=== PATIENT | female | born 1965 | race Two or more races ===

== ENCOUNTER 2025-03-06 13:36 | Emergency (ER) | payer MEDICAID, OTHER ==
[~2025-03-06] VITALS: Ht 160 cm; Wt 69.0 kg
[2025-03-06 13:43] VITALS: TEMP 98.4
[2025-03-06 14:37] VITALS: BP 133/83
[2025-03-06 14:43] VITALS: PULSE 85; RESP 18; O2SAT 95
[2025-03-06] MEDS ORDERED: INSLANTI SC (14:45)
[2025-03-06] MEDS ORDERED: INSUINJ7 IJ (14:45)
--- NOTE | 2025-03-06 14:45 | ED.PDOC ---
History of present illness HPI Comments 59-YEAR-OLD FEMALE PRESENTS TO THE ER WITH A CHIEF COMPLAINT BEING TYPE 2 DIABETES AND NEEDS MEDICATION REFILL FOR HER INSULIN AT THIS TIME. THE PATIENT REPORTS ON USING 2 TIMES OF INSULIN: ONE AT A DOSE OF 14 UNITS 3 TIMES A DAY AND ANOTHER AT A DOSE OF 20 UNITS ONCE A DAY. THE PATIENT HAS RAN OUT OF HER I NSULIN SUPPLY AFTER TRAVELING FROM [place] AND I HAVE ONLY BEEN ABLE TO ADMINISTER ONE DOSE TODAY. THERE HAS BEEN IN THE AREA FOR A FEW DAYS AND DO NOT HAVE A PRIMARY CARE DOCTOR LOCALLY AT THIS TIME. DENIES ANY OTHER SYMPTOMS AT THIS TIME. Chief Complaint: Diabetes Time Seen by MD: 14:50 Allergies: Coded Allergies: NO KNOWN ALLERGIES (Unverified , 03/06/25) Home Meds Active Scripts Insulin Glulisine (Apidra) 100 Unit/Ml Inj, 14 UNIT IJ TID for 30 Days, #1 KIT 0 Refills Prov:MARIO SOOD NP 03/06/25 Insulin Glargine (Lantus) 100 Unit/Ml Inj, 20 UNIT SC DAILY for 30 Days, #1 KIT 0 Refills Prov:MARIO SOOD NP 03/06/25 Mode of Arrival: Ambulatory Timing: Came on: Suddenly Duration: Since onset Prehospital treatment: None [place]: None History of: None Associated signs and symptoms: None Past Medical History PAST MEDICAL HISTORY: DM Surgical History: Denies all surgeries PRESS SET UP PERSON History: No Pertinent PRESS SET UP PERSON History Family History Family History: Reviewed,noncontributory to illness, Unknown Social History Smoker: Non-Smoker Alcohol: Denies ETOH Use Drugs: Denies Drug Use Lives In: Home All Other Systems: Reviewed and Negative (MEDICATION REFILL) Physical Exam General Appearance: No Apparent Distress, Normal HEENT: Normal ENT Inspection, Pharynx Normal, TMs Normal Neck: Full Range of Motion, Non-Tender, Normal, Normal Inspection Respiratory: Chest Non-Tender, Lungs Clear, No Accessory Muscle Use, No Respiratory Distress, Normal Breath Sounds Cardiovascular: No Edema, No JVD, No Murmur, No Gallop, Normal Peripheral Pulses, Regular Rate/Rhythm Breast Exam: Deferred Gastrointestinal: No Organomegaly, Non Tender, No Pulsatile Mass, Normal Bowel Sounds, Soft Genitalia: Deferred Pelvic: Deferred Rectal: Deferred Extremities: No calf tenderness, Normal capillary refill, Normal inspection, Normal range of motion, Non-tender, No pedal edema Musculoskeletal : Apperance: Normal Neurologic: Alert, digital associate II-XII nml as Tested, No Motor Deficits, Normal Affect, Normal Mood, No Sensory Deficits Cerebellar Function: Normal Reflexes: Normal Skin: Dry, Normal Color, Warm Lymphatic: No Adenopathy Was a procedure done? Was a procedure done?: No Differential Diagnosis (DM) Differential Diagnosis: N/A Other Differential Diagnosis MEDICATION REFILL FOR INSULIN X-Ray, Labs, Meds, VS Vital Signs Date Time Temp Pulse Resp B/P (MAP) Pulse Ox O2 Delivery O2 Flow Rate FiO2 03/06/25 14:43 85 18 95 Room Air 03/06/25 14:37 85 18 133/83 (100) 95 03/06/25 13:43 98.4 88 16 128/85 95 98.4 X-Ray, Labs, Meds, VS Comment 59-YEAR-OLD FEMALE PRESENTS TO THE ER WITH A CHIEF COMPLAINT BEING TYPE 2 DIABETES AND NEEDS MEDICATION REFILL FOR HER INSULIN AT THIS TIME. PATIENT ARRIVES ALERT AND ORIENTED, ABC'S INTACT, AFEBRILE, VITAL SIGNS STABLE, SATURATING WELL IN ROOM AIR Patient is stable for discharge at this time. External notes reviewed. Test results and diagnostic imaging interpreted. All diagnostic findings, discharge care, education and instructions provided Follow-up with PCP in 2 to 3 days Patient verbalized understanding and agreed to treatment plan Vital signs stable, afebrile, no acute distress noted Patient ambulatory with strong steady gait Advised to return precautions for any new or worsening symptoms, return to ER immediately for re-evaluation Patient is aware that the purpose of this visit was for an acute medical emergency requiring emergent stabilization. Chronic conditions, including malignancies have not been ruled out. Patient is instructed to follow up with PCP as directed and discharge instructions for continued care and workup. If unable to arrange follow-up, patient is to return to the emergency department for reassessment. Patient (parent or legal guardian if applicable) was given verbal and written discharge instructions and acknowledges understanding. ADDITIONAL MDM REVIEW OF EXTERNAL, NON-ED RECORDS: EXTERNAL RECORDS REVIEWED. DISCUSSION WITH INDEPENDENT HISTORIAN (EMS, FAMILY) HISTORY OBTAINED FROM THE PATIENT/PARENTS (IF APPLICABLE) AT BEDSIDE CHRONIC CONDITIONS AFFECTING CARE: NONE SOCIAL DETERMINANTS OF HEALTH AFFECTING CARE: NONE CONSIDERATION OF ADMISSION (OBSERVATION OR ADMISSION): I CONSIDERED ESCALATION OF CARE TO ADMISSION FOR THIS PATIENT, HOWEVER GIVEN THE REASSURING WORKUP, THE PATIENT IS SAFE FOR OUTPATIENT MANAGEMENT. DISCUSSION WITH THE RADIOLOGY: NO TESTS CONSIDERED BUT NOT PERFORMED: PRESCRIPTION MEDICATION CONSIDERED BUT NOT GIVEN: 12 LEAD EKG INTERPRETATION: Time of 1ST Reevaluation: 15:20 Reevaluation 1ST: Unchanged Patient Education/Counseling: Diagnosis, Treatment, Prognosis Family Education/Counseling: Diagnosis, Treatment, Prognosis SEPSIS Sepsis Screen Date sepsis recognized/suspect: Mar 06, 2025 Time Sepsis recognized/suspect: 1343 Recent Procedure: No On Antibiotic Therapy: No Respiratory Rate >20: No Heart Rate >90: No Temp<36 C (96.8 F) or >38.3 C: No SBP <90 or MAP <65 mmHG: No New Acute Mental Status Change: No Is the patient on CPAP, BIPAP,: No Vital Signs Date Time Temp Pulse Resp B/P (MAP) Pulse Ox O2 Delivery O2 Flow Rate FiO2 03/06/25 14:43 85 18 95 Room Air 03/06/25 14:37 85 18 133/83 (100) 95 03/06/25 13:43 98.4 88 16 128/85 95 98.4 Departure 1 Departure Time of Disposition: 14:45 Impression: Primary Impression: Medication refill Disposition: HOME / SELF CARE / HOMELESS Condition: Stable e-Prescriptions Insulin Glulisine (Apidra) 100 Unit/Ml Inj 14 UNIT IJ TID for 30 Days, #1 KIT 0 Refills Prov: MARIO SOOD NP 03/06/25 Insulin Glargine (Lantus) 100 Unit/Ml Inj 20 UNIT SC DAILY for 30 Days, #1 KIT 0 Refills Prov: MARIO SOOD NP 03/06/25 Discharged With: Self Critical Care Note Critical Care Time?: No Stability Stability form required: No Heart Score Heart Score: Heart Score Response (Comments) Value History N/A 0 EKG N/A 0 Age N/A 0 Risk Factors N/A 0 Troponin N/A 0 Total 0 I personally scribed for MARIO SOOD NP ([email or web address]) on 03/06/25 at 14:52. Electronically submitted by Chan Bhatti ([email or web address]). MARIO SOOD NP Mar 06, 2025 14:45
== END 2025-03-06 14:58 | disposition home or self-care (01) ==
LOC: ER 13:36
DX: E11.9 Type 2 diabetes mellitus without complications (principal); Z76.0 Encounter for issue of repeat prescription; Z79.4 Long term (current) use of insulin